=== PATIENT | male | born 1980 | race Hispanic/Latino ===

== ENCOUNTER 2018-10-21 01:20 | Emergency (ER) | payer BC, OTHER ==
[2018-10-21 01:54] LABS: BILIRUBIN,URINE Negative (NEGATIVE); COLOR,URINE Yellow (YELLOW); GLUCOSE, URINE (UA) Negative (NEGATIVE); KETONES,URINE Negative (NEGATIVE); LEUKOCYTE ESTERASE ,URINE Negative (NEGATIVE); NITRATE,URINE Negative (NEGATIVE); OCCULT BLOOD,URINE Negative (NEGATIVE); PH,URINE 7.5 (5.0-8.0); PROTEIN,URINE Negative (NEGATIVE)
[2018-10-21 01:56] LABS: APPEARANCE,URINE CLEAR (CLEAR)
[2018-10-21 02:06] LABS: EOSINOPHILS % (AUTO) 8.6 % (0.0-8.0); HEMATOCRIT 41.8 % (42-54); LYMPHOCYTES % (AUTO) 29.7 % (21.0-51.0); MEAN CORPUSCULAR HEMOGLOBIN 31.1 pg (27.0-33.0); MEAN CORPUSCULAR HGB CONC 35.6 g/dL (32.0-36.0); MEAN CORPUSCULAR VOLUME 87.2 fL (79-99); MONOCYTES % (AUTO) 8.4 % (3.0-13.0); NEUTROPHILS % (AUTO) 52.3 % (40.0-77.0); PLATELET COUNT (AUTO) 238 K/uL (130-400); RED CELL DISTRIBUTION WIDTH 13.4 % (11.0-15.5); WHITE BLOOD COUNT (AUTO) 7.8 K/uL (4.8-10.8)
[2018-10-21 02:15] LABS: CREATININE 0.9 mg/dL (0.5-1.5); POTASSIUM 3.8 mmol/L (3.5-5.1)
[2018-10-21 02:21] LABS: BILIRUBIN,TOTAL 0.3 mg/dL (0.2-1.0)
[2018-10-21 02:47] LABS: AMYLASE 41 U/L (25-115); LIPASE 129 U/L (114-286)
[2018-10-21] MEDS ORDERED: SUCRALFATE 1 GM TABLET ONE (03:40)
[2018-10-21] MEDS ORDERED: FAMOTIDINE/PF 20 MG/2 ML VIAL IV ONE (03:40)
[2018-10-21] MEDS ORDERED: DICYCLOMINE HCL 10 MG/ML 2ML AMP IM ONE (03:40)
[2018-10-21] MEDS ORDERED: KETOROLAC TROMETHAMINE 30MG/ML ONE (04:20)
== END 2018-10-21 05:53 | disposition home or self-care (01) ==
LOC: EDH 01:20
DX: R10.13 Epigastric pain (principal); R10.12 Left upper quadrant pain
CPT/HCPCS: 36415; 74176; 80053; 81003; 82150; 83690; 85025; 96372; 96374; 96375; 99285; J0500; J1885; J3490